=== PATIENT | female | born 1980 | race African-American/Black ===

== ENCOUNTER 2017-02-03 11:52 | Inpatient (IN) | payer MEDICAID ==
[~2017-02-03 11:52] MED LIST: ACID CONTROL150 M2 PO; COLACE100 M1 PO; IBUPROFEN800 M1 PO; IRON PO; MACROBID 100 M100 M1 PO; MILK OF MAGNESIA PO; NO HOME MEDS; NORCO 5-325 TA1 EACH PO; OMEPRAZOLE40 M2 PO; PRENATAL CAPLE1 EACH PO; PRENATAL ONE T1 EAC1 PO; PRENATAL VITAM1 EA12 PO; PRENATAL1 TAB; RANITIDINE HCL150 M2 PO; TYLENOL WITH C1 EACH PO; TYLENOL325 M2 PO; VITAMIN D PO
[2017-02-03] MEDS ORDERED: ZYRTEC10 M7 PO (12:12)
[2017-02-03 16:53] LABS: EOS % 1.8 % (0-7); EOSINOPHIL ABSOLUTE COUNT 0.1 tho/cmm (0.0-0.7); HCT-HEMATOCRIT 35.1 % (34.0-49.0); HGB-HEMOGLOBIN 11.6 gm/dl (12.0-15.5); IMMATURE GRANULOCYTES ABSOLUTE 0.01 tho/cmm (0-0.03); IMMATURE GRANULOCYTES PERCENT 0.2 % (0-0.3); LYMPH % 30.8 % (20-45); LYMPH ABSOLUTE COUNT 1.6 tho/cmm (0.8-4.5); MCH (MEAN CORPUSCULAR HGB) 28.2 pg (28.0-32.0); MCV (MEAN CELL VOLUME) 85.4 fl (82.0-96.0); MEAN PLATELET VOLUME 11.5 cmc (9.4-12.4); MONO % 7.9 % (0-12); MONOCYTE ABSOLUTE COUNT 0.4 tho/cmm (0.0-1.2); NEUTROPHILS % 59.3 % (40-80); PLATELET COUNT 105 tho/cmm (150-450); RED BLOOD COUNT 4.11 mil/cmm (4.00-5.20); RED CELL DISTRIBUTION WIDTH 14.4 % (12.4-16.4); WHITE BLOOD COUNT 5.1 tho/cmm (4.0-10.0)
[2017-02-05 05:34] LABS: BASO % 0.1 % (0-2); EOS % 1.3 % (0-7); EOSINOPHIL ABSOLUTE COUNT 0.1 tho/cmm (0.0-0.7); HCT-HEMATOCRIT 31.1 % (34.0-49.0); HGB-HEMOGLOBIN 10.4 gm/dl (12.0-15.5); IMMATURE GRANULOCYTES ABSOLUTE 0.02 tho/cmm (0-0.03); IMMATURE GRANULOCYTES PERCENT 0.3 % (0-0.3); LYMPH % 24.4 % (20-45); LYMPH ABSOLUTE COUNT 1.9 tho/cmm (0.8-4.5); MCH (MEAN CORPUSCULAR HGB) 28.4 pg (28.0-32.0); MCHC MEAN CORPUSCULAR HGB CONC 33.4 % (32.0-36.0); MEAN PLATELET VOLUME 11.4 cmc (9.4-12.4); MONO % 10.9 % (0-12); MONOCYTE ABSOLUTE COUNT 0.8 tho/cmm (0.0-1.2); NEUTROPHIL ABSOLUTE COUNT 4.8 tho/cmm (1.6-8.0); NEUTROPHIL-AUTOMATED 4.8 tho/cmm (1.6-8.0); PLATELET COUNT 100 tho/cmm (150-450); RED BLOOD COUNT 3.66 mil/cmm (4.00-5.20); RED CELL DISTRIBUTION WIDTH 14.6 % (12.4-16.4); WHITE BLOOD COUNT 7.6 tho/cmm (4.0-10.0)
[2017-02-06] MEDS ORDERED: NORCO 5-325 TA1 EACH PO (09:28)
[2017-02-06] MEDS ORDERED: IBUPROFEN800 M1 PO (09:29)
[2017-02-06] MEDS ORDERED: COLACE100 M1 PO (09:30)
[2017-02-06] MEDS ORDERED: MILK OF MAGNESIA PO (09:31)
[2017-02-06] MEDS ORDERED: PRENATAL ONE T1 EAC1 PO (09:32)
== END 2017-02-06 20:20 | DRG 775 ==
LOC: LDR 11:52 → OBGF 02-04 14:53
PROVIDERS: ADMIT Family Medicine
PROC: 3E033VJ Introduction of Other Hormone into Peripheral Vein, Percutaneous Approach (ICD-10-PCS; 2017-02-03)
PROC: 10E0XZZ Delivery of Products of Conception, External Approach (ICD-10-PCS; principal; 2017-02-04)
DX: O36.8130 Decreased fetal movements, third trimester, not applicable or unspecified (principal); O76 Abnormality in fetal heart rate and rhythm complicating labor and delivery; O71.89 Other specified obstetric trauma; Z3A.40 40 weeks gestation of pregnancy; Z37.0 Single live birth
CPT/HCPCS: J2590